=== PATIENT | male | born 2000 | race American Indian/Alaskan Native ===

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

== ENCOUNTER 2019-04-23 12:55 | Emergency (ER) | payer OTHER, MEDICAID ==
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
[2019-04-23 15:10] VITALS: BP 130/88
== END 2019-04-23 16:02 | disposition home or self-care (01) ==
LOC: ED 12:55
DX: M54.2 Cervicalgia (principal); M54.5 Low back pain; Z79.899 Other long term (current) drug therapy; Z90.89 Acquired absence of other organs; V89.2XXA Person injured in unspecified motor-vehicle accident, traffic, initial encounter; Y93.89 Activity, other specified; Y92.488 Other paved roadways as the place of occurrence of the external cause; Y99.8 Other external cause status
CPT/HCPCS: 99282